=== PATIENT | female | born 1990 ===

== ENCOUNTER 2021-01-30 08:27 | Outpatient (CLI) | payer OTHER ==
[2021-01-30 21:09] LABS: SARS-CoV-2 PCR by NAA Not Detected (NotDetected)
== END 2021-01-30 08:28 | disposition home or self-care (01) ==
LOC: CSHLAB 08:27
PROVIDERS: ATTEND Family Medicine
DX: Z01.812 Encounter for preprocedural laboratory examination (principal); Z20.822 Contact with and (suspected) exposure to COVID-19
CPT/HCPCS: U0003; U0005